=== PATIENT | male | born 1940 | race Caucasian/White ===

== ENCOUNTER 2020-07-30 09:08 | Outpatient (CLI) | payer MEDICARE ==
--- NOTE | 2020-07-30 09:38 | BD ---
EXAM: Bone densitometry using DEXA HISTORY: 79 yo male. Screening for osteoporosis FINDINGS: L1--bone mineral density 0.854 g/sq cm; T score -2.0 ; Z score -0.9 L2--bone mineral density 0.885 g/sq cm; T score -1.9 ; Z score -0.7 L3--bone mineral density 0.897 g/sq cm; T score -1.9 ; Z score -0.6 L4--bone mineral density 0.983 g/sq cm; T score -1.0 ; Z score 0.3 Total L1-L4--bone mineral density 0.915 g/sq cm; T score -1.6 ; Z score -0.4 Left femoral neck--bone mineral density0.670; T score -1.9 ; Z score -0.3 Total proximal left femur--bone mineral density 0.805; T score -1.5 ; Z score -0.4 The 10 year fracture risk for a major osteoporotic fracture is 6.5% and for a hip fracture is 2.8%. IMPRESSION: Osteopenia
== END 2020-07-30 09:09 | disposition home or self-care (01) ==
LOC: BICMAMMO 09:08
PROVIDERS: ATTEND Family Medicine
DX: M80.80XD Other osteoporosis with current pathological fracture, unspecified site, subsequent encounter for fracture with routine healing (principal); M85.89 Other specified disorders of bone density and structure, multiple sites
CPT/HCPCS: 77080